=== PATIENT | female | born 1990 | race Caucasian/White ===

== ENCOUNTER 2023-05-11 02:10 | Emergency (ER) | payer OTHER ==
[~2023-05-11] VITALS: Ht 162.6 cm; Wt 63.5 kg
[2023-05-11 02:13] VITALS: BP 103/65
== END 2023-05-11 05:08 | disposition home or self-care (01) ==
LOC: ER 02:10
DX: S89.91XA Unspecified injury of right lower leg, initial encounter (principal); X50.9XXA Other and unspecified overexertion or strenuous movements or postures, initial encounter; Y93.41 Activity, dancing
CPT/HCPCS: 73562-RT; 96374; 99284-25; J1885